=== PATIENT | female | born 1970 | race Caucasian/White ===

== ENCOUNTER 2020-02-24 10:30 | Outpatient (REF) | payer MEDICAID, SELFPAY | END 2020-02-24 10:31 | disposition home or self-care (01) | LOC: HO.WFDLDS 10:30 | PROVIDERS: PCP Internal Medicine; Visit Provider Internal Medicine | DX: Z20.828 Contact with and (suspected) exposure to other viral communicable diseases (principal) | CPT/HCPCS: C9803; U0003 ==

== ENCOUNTER 2020-03-04 10:46 | Outpatient (REF) | payer MEDICAID, SELFPAY | END 2020-03-04 10:47 | disposition home or self-care (01) | LOC: HO.WFDLDS 10:46 | PROVIDERS: PCP Internal Medicine; Visit Provider Internal Medicine | DX: Z20.828 Contact with and (suspected) exposure to other viral communicable diseases (principal) | CPT/HCPCS: 36415; C9803; U0003 ==